=== PATIENT | female | born 1975 | race Caucasian/White ===

== ENCOUNTER 2016-05-01 11:50 | Inpatient (IN) | payer BC ==
--- NOTE | 2016-05-01 12:37 | CT ---
EXAM DESCRIPTION: CT ABDOMEN PELVIS WITH IV CONTRAST CLINICAL HISTORY: ABD PAIN COMPARISON: None. TECHNIQUE: Postcontrast multidetector CT imaging of the abdomen and pelvis was performed. Multiplanar reconstructions were generated. FINDINGS: Lung bases: No acute disease process in the lung bases. Liver: Unremarkable. Gallbladder and biliary system: Unremarkable Pancreas: Unremarkable. Spleen: Unremarkable. Adrenal glands: Normal. Kidneys: Unremarkable. Bladder: No abnormal bladder mucosal enhancement. Gastrointestinal: No gastrointestinal obstruction or inflammation is present. Inflammatory changes noted about the appendix compatible with appendicitis. No evidence of abscess or perforation at this time. Pelvic organs: Unremarkable Other: No free fluid, free intraperitoneal gas or lymphadenopathy. No aggressive lytic or blastic osseous lesions are present. Atherosclerotic disease of the abdominal aorta, negative for aneurysm. Small fat containing umbilical hernia. IMPRESSION: The findings above are compatible with appendicitis. There is no evidence of perforation or abscess formation at this time. Atherosclerotic disease of the abdominal aorta. Electronically signed by: Lukasz Ching MD 05/01/2016 12:35
--- NOTE | 2016-05-01 13:59 | HP ---
CHIEF COMPLAINT: Abdominal pain. HISTORY OF PRESENT ILLNESS: The patient is a 40-year-old female who was in her normal state of health until yesterday when she developed abdominal pain that moved to the right lower quadrant. She denied fever or nausea. She was seen by Jamila Park today who ordered a CT scan which shows inflammatory changes around the appendix, suspicious for appendicitis. There is no sign of perforation or abscess. The patient does state she had an episode much like this in December. She was treated for a urinary tract infection which resolved the symptoms. She denies change in her bowel habits, blood per rectum , melanotic stools or hematemesis. She denies other previous episodes of like illness. PAST MEDICAL HISTORY: 1. Childbirth times two. PAST SURGICAL HISTORY: 1. Hysterectomy. 2. Ovarian cystectomy as a young person. CURRENT MEDICATIONS: 1. Water pill for swelling. No history of hypertension. 2. Hormone pellet. ALLERGIES: NO KNOWN DRUG ALLERGIES. FAMILY HISTORY: Positive for heart disease, hypertension, carcinoma of the lung in her mother who is a smoker, hypercholesterolemia. SOCIAL HISTORY: The patient is . She works. She smokes and has a probably somewhere around a 20 pack year history of tobacco abuse, but she has decreased down to just over half a pack a day currently. She uses alcohol rarely. REVIEW OF SYSTEMS: There is no history of weight loss, urinary tract symptoms, upper respiratory symptoms, weakness, shortness of breath, or chest pain. PHYSICAL EXAMINATION: GENERAL: The patient is awake, alert, cooperative, in mild distress. VITAL SIGNS: Currently awaiting vital signs. HEENT: Sclerae nonicteric. Mucous membranes moist. NECK: Without adenopathy. BACK: Without CVA tenderness. CHEST: Equal breath sounds bilaterally. ABDOMEN: Soft. Tenderness in the right lower quadrant without noted guarding. There is mild referred tenderness to the right lower quadrant. PELVIC/RECTAL: Deferred. EXTREMITIES: Without cyanosis, clubbing or edema. LABORATORY: Pending. White blood cell count at [facility] was said to be 20,000. As noted, the CT scan reveals inflammatory changes involving the base of the cecum and the appendix consistent with appendicitis. There is no free air, free fluid, or abscess cavity identified. IMPRESSION: 1. Right lower quadrant abdominal pain. 2. Leukocytosis. 3. Abnormal CT scan suspicious for appendicitis. RECOMMENDATION: With a white count of 20,000, we have recommended we proceed with appendectomy attempted laparoscopically with the certain possibility of open in the presence of her previous surgeries in her pelvis. She will be given IV Flagyl and Mefoxin perioperatively and we will proceed to the Operating Room later this afternoon. #[id number] [facility] CENTERCarissa
[2016-05-01] MEDS ORDERED: SODIUM CHLORIDE 0.9% (FLUSH) 10 ML SYG IV PRN (14:26)
[2016-05-01] MEDS ORDERED: LIDOCAINE 2 % GEL 5 ML TUBE TOP ONE (14:28)
[2016-05-01] MEDS ORDERED: ROCURONIUM BROMIDE 10 MG/ML VIAL ONE (14:28)
[2016-05-01] MEDS ORDERED: fentaNYL CITRATE INJ 50 MCG/ML AMP ONE (14:28)
[2016-05-01] MEDS ORDERED: IV SET AND CAP CHANGE INJ INJ SCH (14:30)
[2016-05-01] MEDS ORDERED: metroNIDAZOLE IV PREMIX 500MG 100 ML IVPB ONE ×2 (14:36→20:40)
[2016-05-01] MEDS ORDERED: levoFLOXacin 500MG IV 100 ML IVPB ONE (14:37)
[2016-05-01] MEDS ORDERED: BUPIVACAINE 0.25% W/EPI 50 ML VIAL INJ ONE (14:42)
[2016-05-01] MEDS: levoFLOXacin 500MG IV 500 MG in PREMIX BAG 1 BAG IVPB SCH (14:44)
[2016-05-01] MEDS: LACTATED RINGERS 1,000 ML IVS PRN ×2 (14:45→16:58)
[2016-05-01] MEDS ORDERED: LACTATED RINGERS 1,000 ML ONE (14:47)
[2016-05-01] MEDS ORDERED: NEOSTIGMINE METHYLSULFATE 1 MG/ML ML IV ONE (15:00)
[2016-05-01] MEDS ORDERED: METOCLOPRAMIDE HCL INJ 10 MG/2 ML VIAL ONE (15:00)
[2016-05-01] MEDS ORDERED: PROPOFOL 200 MG/20 ML VIAL IV ONE (15:00)
[2016-05-01] MEDS ORDERED: ATROPINE SULFATE 0.4 MG/ML 1ML VIAL ONE (15:00)
[2016-05-01] MEDS: metroNIDAZOLE IV PREMIX 500MG 500 MG in PREMIX BAG 1 BAG IVPB SCH ×2 (16:02→22:19)
[2016-05-01] MEDS ORDERED: ONDANSETRON INJ 4 MG/2 ML VIAL IV PRN (16:45)
[2016-05-01] MEDS: KCL 20MEQ/D5 1/2NS 1,000 ML IVS PRN (17:53)
--- NOTE | 2016-05-01 18:15 | OP ---
DATE OF PROCEDURE: 05/01/16 PREOPERATIVE DIAGNOSIS: 1. Right lower quadrant abdominal pain. 2. Leukocytosis and abnormal CT scan suspicious for appendicitis. POSTOPERATIVE DIAGNOSIS: 1. Right lower quadrant abdominal pain. 2. Leukocytosis and abnormal CT scan suspicious for appendicitis. 3. Acute appendicitis. SURGICAL PROCEDURE: 1. Laparoscopy appendectomy. 2. Lysis of adhesions. SURGEON: Jordon Ochoa M.D. LEGAL CONSULTANT: None. ANESTHESIA: General endotracheal anesthesia and local infiltration of 0.25% Marcaine with epinephrine. INDICATION FOR SURGERY: The patient is a 40 year-old female who developed abdominal pain yesterday. It has moved to the right lower quadrant. She was seen for the abdominal pain without fever and found to have a leukocytosis of over 18,000. CT scan revealed inflammatory process in the area of the appendix suspicious for appendicitis. She was brought to the Surgical Suite today for laparoscopy, appendectomy and indicated procedures after the risks, benefits, and alternatives of the procedure were discussed and accepted by the patient and her family. FINDINGS AT TIME OF PROCEDURE: Multiple adhesions from the previous pelvic surgery. The appendix was inflamed with no obvious perforation or fluid collection. No other pathology was identified. DESCRIPTION OF PROCEDURE: After adequate general endotracheal anesthesia was obtained, a Cotton catheter was placed and the patient was prepped and draped in the usual sterile manner. At this point, a surgical time out was taken. Then the infraumbilical area was infiltrated with local anesthetic. A curvilinear incision was fashioned and carried down through the subcutaneous tissue to the midline fascia. Traction sutures were placed on either side of the midline. A small incision was made in the midline fascia. The peritoneum was opened bluntly. Randall trocar was introduced under direct vision and fixed in place with a 20 mL balloon. CO2 was then insufflated until a pressure of 12 mmHg was reached and the abdomen was tympanitic in all 4 quadrants. When this was done, the laparoscope was introduced and immediately large amounts of adhesions were identified. We were able to find our way down to the lower abdomen and adjust to the patient's right side of the midline identified a push. Local anesthetic was administered and the needle was identified, and after a stab wound was made the 5 mm port was introduced at this point safely, fixed in place. The right lower quadrant was explored and the appendix was identified. At this point again, an open space was found in the left lower quadrant and the 12 mm port was placed there under direct vision. When this was done, some adhesions were taken down in the pelvis from the anterior abdominal wall to the omentum to allow the passing of an instrument from the patient's left side to the right side. At this point, the appendix was identified and elevated. In attempt to dissect the mesoappendix, the appendix broke so the base of the appendix was stapled using an Endo-MILA with a vascular load and it was removed. The stump of the appendix was removed and sent for pathological evaluation. When this was done, the remaining appendix was removed first by 2 firings of the Endo-MILA dividing the mesoappendix. It was placed in an EndoCatch bag and removed from the left lower quadrant port site under direction vision in the usual manner. When this was done, the right lower quadrant, the pelvis and the area of lysis of adhesions were all irrigated copiously with saline. The effluent was noted to be clear eventually. No obvious active bleeding was identified. At this point, the left lower quadrant port was removed under direct vision and the fascia was reapproximated with 2 simple sutures of 0 Vicryl placed using the EndoClose device. When these were tightened and tied, good hemostasis was noted. At this point, the 5 mm suprapubic port was removed under direct vision and good hemostasis was noted. At this point, the CO2, the laparoscope and the infraumbilical port were removed. The infraumbilical port site fascia was approximated with a single [id number] suture of 0 Vicryl. Subcutaneous tissue was then vigorously irrigated with saline. Skin edges were loosely approximated with a skin stapler. Sterile dressings were applied. The patient was awakened and taken to the Recovery Room in stable condition. Estimated blood loss was approximately 50 mL. All sponge, needle and instrument counts were correct. #[id number] [facility]
[2016-05-01] MEDS: HYDROmorphone HCL INJ 2 MG/ML VIAL IV PRN (18:25)
[2016-05-02] MEDS: HYDROmorphone HCL INJ 2 MG/ML VIAL IV PRN ×7 (00:28→23:19)
[2016-05-02] MEDS ORDERED: DEX 5% W/NACL 0.45% 1000ML 0 ML IVS ONE (02:09)
[2016-05-02] MEDS: KCL 20MEQ/D5 1/2NS 1,000 ML IVS PRN ×3 (02:12→19:16)
[2016-05-02] MEDS ORDERED: metroNIDAZOLE IV PREMIX 500MG 100 ML IVPB ONE ×3 (04:15→22:02)
[2016-05-02] MEDS: metroNIDAZOLE IV PREMIX 500MG 500 MG in PREMIX BAG 1 BAG IVPB SCH ×3 (06:02→22:11)
[2016-05-02] MEDS ORDERED: MAGNESIUM HYDROXIDE 30 ML UD PO ONE (09:12)
[2016-05-02] MEDS ORDERED: levoFLOXacin 500MG IV 100 ML IVPB ONE (13:19)
[2016-05-02] MEDS: levoFLOXacin 500MG IV 500 MG in PREMIX BAG 1 BAG IVPB SCH (15:33)
[2016-05-03] MEDS: HYDROmorphone HCL INJ 2 MG/ML VIAL IV PRN ×2 (05:18→09:59)
[2016-05-03] MEDS: KCL 20MEQ/D5 1/2NS 1,000 ML IVS PRN ×2 (05:19→19:07)
[2016-05-03] MEDS ORDERED: metroNIDAZOLE IV PREMIX 500MG 100 ML IVPB ONE ×3 (05:52→20:11)
[2016-05-03] MEDS: metroNIDAZOLE IV PREMIX 500MG 500 MG in PREMIX BAG 1 BAG IVPB SCH ×3 (06:03→22:42)
[2016-05-03] MEDS ORDERED: MAGNESIUM HYDROXIDE 30 ML UD PO ONE (11:13)
[2016-05-03] MEDS ORDERED: MAGNESIUM HYDROXIDE 30 ML UD ONE (12:27)
[2016-05-03] MEDS ORDERED: levoFLOXacin 500MG IV 100 ML IVPB ONE (14:38)
[2016-05-03] MEDS: HYDROcodone 5MG/APAP 325MG 1 EA TAB PO PRN ×3 (14:49→21:48)
[2016-05-03] MEDS: levoFLOXacin 500MG IV 500 MG in PREMIX BAG 1 BAG IVPB SCH (16:06)
[2016-05-04] MEDS ORDERED: metroNIDAZOLE IV PREMIX 500MG 100 ML IVPB ONE (02:16)
[2016-05-04] MEDS: HYDROcodone 5MG/APAP 325MG 1 EA TAB PO PRN ×2 (02:20→10:49)
[2016-05-04] MEDS: metroNIDAZOLE IV PREMIX 500MG 500 MG in PREMIX BAG 1 BAG IVPB SCH (06:18)
[2016-05-04 10:29] VITALS: BP 121/86; TEMP 98.6; O2SAT 96
[2016-05-04] MEDS ORDERED: INFLUENZA VIRUS VACC (ADULT) 0.5 ML SYG IM ONE (11:57)
--- NOTE | 2016-05-04 14:18 | DS ---
FINAL DIAGNOSIS: 1. Acute appendicitis pending the final pathology report. 2. Large amount of pelvic adhesions. SURGICAL PROCEDURE: 1. The patient underwent laparoscopic appendectomy and lysis of adhesions on 05/01/16. HISTORY OF PRESENT ILLNESS: The patient is a 40-year-old female who was in her normal state of health until yesterday when she developed abdominal pain that moved to the right lower quadrant. She denied fever or nausea. She was seen by Jamila Park today who ordered a CT scan which shows inflammatory changes around the appendix, suspicious for appendicitis. There is no sign of perforation or abscess. The patient does state she had an episode much like this in December. She was treated for a urinary tract infection which resolved the symptoms. She denies change in her bowel habits, blood per rectum , melanotic stools or hematemesis. She denies other previous episodes of like illness. LABORATORY: At the time of discharge, the patient's white blood cell count was down to 14,000 with 75% neutrophils, hemoglobin 11.8. All of these were down from admission. Platelet count 183,000. The pathology report is pending at the time of discharge. HOSPITAL COURSE: The patient was directly admitted after an outpatient CT scan revealed appendicitis. She was given IV Flagyl and Levaquin. The risks, benefits, and alternatives to appendectomy were discussed and accepted. She was taken to the surgical suite in the early afternoon of 05/01 where she underwent the previously mentioned surgery. By the first postoperative morning , her T max was 99.7, pulse was in the 90s, pulse oximetries were good. Urine output was adequate. She complained of pain and was tolerating a clear liquid diet without nausea, but was belching. Her abdomen was soft, diffusely tender and quiet. Her white cell count was down from 18,000 to 16,000, hemoglobin was down from 15 to 13. She had 72% neutrophils. Her IV was decreased from 150 to 100 mL an hour. She was given a dose of Milk of Magnesia. Incentive spirometry was started and she began ambulation. By the second postoperative day, she had a large urine output. She was tolerating the clear liquid diet but was still belching somewhat. She had had no flatus. Her abdomen was soft. She did have bowel sounds. White count, however, was up to 17,000 and the differential revealed 78% neutrophils. Hemoglobin was down to 12.5 so she was given another dose of Milk of Magnesia. The IV was decreased and eventually the diet was advanced to a regular diet. Over the next evening she had multiple bowel movements, tolerating the regular diet, tolerating oral pain medication. On the morning of 05/04/16, the third postoperative day, she was discharged home. Condition on discharge is improved and good. The prognosis is excellent pending the pathology report. PLAN: She was discharged on a regular diet and told to push fluids. She was discharged with instructions to shower but not tub bath. She was instructed that she can ambulate but do no lifting or exercise. She was given prescription for Irwin 5 #40 and for Levaquin 500 #4 and Flagyl 500 #13. She is instructed to call my office to make an appointment for 9 days and instructed most importantly to call me if she develops nausea or vomiting, fever or chills, increasing abdominal pain, drainage from her wounds or has any other questions or problems. #[id number] MTD[facility]
== END 2016-05-04 14:25 | disposition home or self-care (01) | DRG 337 ==
LOC: CT 11:50 → MS 13:55
PROVIDERS: ADMIT Surgery; ATTEND Surgery
PROC: 0DNE4ZZ Release Large Intestine, Percutaneous Endoscopic Approach (ICD-10-PCS; 2016-05-01)
PROC: BW21YZZ Computerized Tomography (CT Scan) of Abdomen and Pelvis using Other Contrast (ICD-10-PCS; 2016-05-01)
PROC: 0DTJ4ZZ Resection of Appendix, Percutaneous Endoscopic Approach (ICD-10-PCS; principal; 2016-05-01 15:30)
DX: K35.80 Unspecified acute appendicitis (principal); K66.0 Peritoneal adhesions (postprocedural) (postinfection); F17.210 Nicotine dependence, cigarettes, uncomplicated; Z79.899 Other long term (current) drug therapy

== ENCOUNTER → 2016-05-17 | Outpatient (CLI) | payer BC | LOC: LAB 11:34 | PROVIDERS: ATTEND Surgery | DX: R30.0 Dysuria (principal) ==

== ENCOUNTER → 2017-06-25 | Outpatient (CLI) | payer BC ==
--- NOTE | 2017-06-30 10:12 | MAM ---
EXAM DESCRIPTION: 3D Screening BILATERAL : Digital Mammography. CLINICAL HISTORY: 41 years Female SCREENING . No complaints. No family history breast cancer. Hysterectomy. Currently on HRT. Bilateral breast augmentation. COMPARISON: 2-D digital screening bilateral study with Karel technique 10/23/2015. No prior reports available. TECHNIQUE: Bilateral CC and MLO projection full-field images, with Karel Implant Displacement 3-D tomosynthesis digital mammographic technique. Also bilateral synthesized CC/ MLO full-field images. Also with Karel Implant Displacement, CAD not utilized. Bilateral 2-D digital full-field images, MLO and CC projections, non-displaced, with CAD. FINDINGS: The breast parenchymal density pattern is: Heterogeneously dense breast tissue, which may obscure small masses. No skin thickening or nipple retraction bilateral solitary microcalcifications. Bilateral retromuscular saline implants. Capsules are smooth and intact where seen. No focal, stellate mass or density, focal asymmetry , and no suspicious microcalcifications bilaterally. Stable mammograms compared to prior study, taking into account differences in mammographic technique IMPRESSION: BI-RADS CATEGORY: 2 - BENIGN FINDINGS. FOLLOW UP: Routine digital bilateral screening, one year interval from May 2017. Written communication explaining the IMPRESSION and follow-up, will be mailed to the patient and referring health care provider. According to the [employer], yearly mammograms are recommended starting at age 40 and continuing as long as a woman is in good health. Any breast change noted on a breast self-exam should be reported promptly to the patient's healthcare provider. Breast MRI is recommended for women with an approximately 20-25% or greater lifetime risk of breast cancer, including women with a strong family history of breast or ovarian cancer and women who have been treated for Hodgkin's disease. A negative mammographic report should not delay tissue diagnosis in patients with significant clinical history or physical findings. Extremely dense breast tissue limits the sensitivity of digital mammography. Electronically signed by: Cam Angela MD 06/30/2017 10:11 AM [facility]
== END ==
LOC: MAMMO 13:23
PROVIDERS: ATTEND Nurse Practitioner Family
DX: Z12.31 Encounter for screening mammogram for malignant neoplasm of breast (principal)

== ENCOUNTER → 2018-11-09 | Outpatient (CLI) | payer BC, OTHER ==
--- NOTE | 2018-11-10 17:26 | MAM ---
EXAM DESCRIPTION: 3D Screening BILATERAL : Digital Mammography. CLINICAL HISTORY: 43 years Female ANNUAL SCREENING . No complaints. No personal or family history of breast cancer. Childbirth. Postmenopausal 15+ years. Currently on HRT. Lifetime risk of developing breast cancer (Tyrer-Cuzick model)(%): 8.7. COMPARISON: Bilateral screening digital breast tomosynthesis with implant displacement technique 06/25/2017. TECHNIQUE: Bilateral CC and MLO projection full-field images, with Karel Implant Displacement digital tomosynthesis mammographic technique. Bilateral 2-D digital full-field images, MLO and CC projections, non-displaced. Bilateral digital 2-D full-field MLO images. With implant displacement. CAD not available for tomosynthesis or 2-D images. FINDINGS: The breast parenchymal density pattern is: Heterogeneously dense breast tissue, which may obscure small masses. No skin thickening or nipple retraction. Solitary small microcalcifications bilaterally. Bilateral saline retro-muscular implants. Capsules appear intact where seen. No new focal, stellate mass or density, focal asymmetry , and no suspicious microcalcifications bilaterally. Stable mammograms compared to prior study. IMPRESSION: Benign exam. BIRAD CATEGORY: 2 BENIGN FINDINGS. RECOMMENDATIONS: FOLLOW UP: Routine digital bilateral mammographic screening, one year interval from October 2018. Written communication explaining the IMPRESSION and follow-up, will be mailed to the patient and referring health care provider. According to the [employer], yearly mammograms are recommended starting at age 40 and continuing as long as a woman is in good health. Any breast change noted on a breast self-exam should be reported promptly to the patient's healthcare provider. Breast MRI is recommended for women with an approximately 20-25% or greater lifetime risk of breast cancer, including women with a strong family history of breast or ovarian cancer and women who have been treated for Hodgkin's disease. A negative mammographic report should not delay tissue diagnosis in patients with significant clinical history or physical findings. Extremely dense breast tissue limits the sensitivity of digital mammography. Electronically signed by: Cam Angela MD 11/10/2018 5:23 PM CDT
== END ==
LOC: MAMMO 14:27
PROVIDERS: ATTEND Nurse Practitioner Family
DX: Z12.31 Encounter for screening mammogram for malignant neoplasm of breast (principal)

== ENCOUNTER → 2019-02-18 | Outpatient (CLI) | payer OTHER ==
--- NOTE | 2019-02-19 10:16 | US ---
EXAM DESCRIPTION: Soft Tissue,Extremity: ULTRASOUND. CLINICAL HISTORY: 43 years Female LOCALIZED SWELLING, MASS AND LUMP COMPARISON: None Available. TECHNIQUE: Transcutaneous scanning: Freeman-scale and Doppler modes. FINDINGS: Scanning in the right axilla at the region of palpable mass. Circumscribed hypoechoic mass is visualized in the subdermal region measuring 8.6 x 5.9 x 3.3 mm. Minimal vascularity. Adjacent mass with central echogenicity measures 5.2 x 2.9 x 2.3 mm. Third mass similar to measures 4.0 x 3.7 x 2.4 mm. Also with central echogenicity. Fourth mass hypoechoic circumscribed margins and central echogenicity measures 1.5 x 2.1 mm. No distinct cyst, no large calcifications, no parenchymal edema. IMPRESSION: 4 lymph nodes in the subdermal layer of the adipose tissue of the right axilla. The largest appears to be reactive and is palpable. 3 other smaller lymph nodes with more normal morphology are visualized. Electronically signed by: Cam Angela MD 02/19/2019 10:14 AM CDT
== END ==
LOC: US 12:12
PROVIDERS: ATTEND Nurse Practitioner Family
DX: R59.0 Localized enlarged lymph nodes (principal)

== ENCOUNTER → 2020-01-06 | Outpatient (CLI) | payer BC, OTHER ==
--- NOTE | 2020-01-07 12:36 | MAM ---
EXAM DESCRIPTION: 3D Screening BILATERAL : Digital Mammography. CLINICAL HISTORY: 44 years Female SCREENING . No complaints. No family history breast cancer. Bilateral breast implants. Menarche age 11. Childbirth age 20. Hysterectomy age 27. Currently on HRT. Lifetime risk of developing breast cancer (Tyrer-Cuzick model)(%): 8.7. COMPARISON: Bilateral screening digital breast tomosynthesis October 2018 and May 2017.. TECHNIQUE: Bilateral CC and MLO projection full-field images digital tomosynthesis mammographic technique. Bilateral 2-D digital full-field images, MLO and CC projections, non-displaced. Bilateral digital 2-D full-field MLO images. Nondisplaced. CAD available for 2-D images. FINDINGS: The breast parenchymal density pattern is: Heterogeneously dense breast tissue, which may obscure small masses. No skin thickening or nipple retraction. Bilateral retro-muscular saline implants. Minimal folds bilaterally. Capsules appear intact where seen. Solitary microcalcifications. No new focal, stellate mass or density, focal asymmetry , and no suspicious microcalcifications bilaterally. Stable mammograms compared to prior study. IMPRESSION: Benign exam. BIRAD CATEGORY: 2 BENIGN FINDINGS. RECOMMENDATIONS: FOLLOW UP: Routine digital bilateral mammographic screening, one year interval from December 2019. Written communication explaining the IMPRESSION and follow-up, will be mailed to the patient and referring health care provider. According to the [employer], yearly mammograms are recommended starting at age 40 and continuing as long as a woman is in good health. Any breast change noted on a breast self-exam should be reported promptly to the patient's healthcare provider. Breast MRI is recommended for women with an approximately 20-25% or greater lifetime risk of breast cancer, including women with a strong family history of breast or ovarian cancer and women who have been treated for Hodgkin's disease. A negative mammographic report should not delay tissue diagnosis in patients with significant clinical history or physical findings. Extremely dense breast tissue limits the sensitivity of digital mammography. Electronically signed by: Cam Angela MD 01/07/2020 12:34 PM CDT
== END ==
LOC: MAMMO 11:53
PROVIDERS: ATTEND Nurse Practitioner Family
DX: Z12.31 Encounter for screening mammogram for malignant neoplasm of breast (principal)